=== PATIENT | female | born 1985 | race Caucasian/White ===

== ENCOUNTER 2018-08-14 20:22 | Emergency (ER) | payer BC ==
[2018-08-14 20:26] VITALS: BMI 27.3
[2018-08-14 23:25] VITALS: BP 121/59; PULSE 98; TEMP 98.4
== END 2018-08-14 22:55 | disposition home or self-care (01) ==
LOC: JER 20:22
DX: Z04.1 Encounter for examination and observation following transport accident (principal); O26.892 Other specified pregnancy related conditions, second trimester; O36.8120 Decreased fetal movements, second trimester, not applicable or unspecified; Z3A.26 26 weeks gestation of pregnancy
CPT/HCPCS: 76815; 99281-25

== ENCOUNTER 2018-11-11 07:45 | Inpatient (IN) | payer BC, OTHER ==
[2018-11-11] MEDS ORDERED: AMPICILLIN SODIUM 2 GM VIAL ONE (09:16)
[2018-11-11] MEDS ORDERED: AMPICILLIN - 2 GM in SODIUM CHLORIDE 100 ML IVPB ONE (09:21)
[2018-11-11 09:24] VITALS: BMI 30.6
--- NOTE | 2018-11-11 09:25 | PN ---
Progress Note (short form) - Note Progress Note: cx 4 to 5 cm 75 vx -3 mi, fhr cat 1, irregular contraction ,pitocin rba discussed , agreed
[2018-11-11] MEDS ORDERED: OXYTOCIN 30 UNITS in 0.9% NS 30 UNIT/500 ML INFUS.BAG IVPB SCH (09:30)
[2018-11-11] MEDS ORDERED: DEXTROSE 5%-LACTATED RINGERS 1,000 ML IV SCH (09:30)
--- NOTE | 2018-11-11 09:31 | HP ---
Past Medical History - Primary Care Physician PCP:: Vidal Storey - Admission Chief Complaint: 38 weeks, labor History of Present Illness: 33 yo f , 38 weeks, c/o carmps. spottting,. cx 4 to 5 cm 75, vx -3 membrane bulging, fhr cat 1, irregular contraction History Source: Patient Limitations to Obtaining History: No Limitations - Past Medical History Gastrointestinal: Yes: Crohn's Disease ...: 2 ...Para: 1 ...Term: 1 ...: 0 ...Spon : 0 ...Induced : 0 ...Multiple Gestation: 0 ...LMP: 02/14/18 ... Weeks Gestation by Dates: 38.4 ...EDC by Dates: 11/21/18 - Past Surgical History Hx Myomectomy: No Hx Transabdominal Cerclage: No - Smoking History Smoking history: Never smoked Have you smoked in the past 12 months: No - Alcohol/Substance Use Hx Alcohol Use: No - Social History Usual Living Arrangement: Yes: With Spouse History of Recent Travel: No Home Medications - Allergies Allergies/Adverse Reactions: Allergies Allergy/AdvReac Type Severity Reaction Status Date / Time No Known Drug Allergies Allergy Verified 11/11/18 09:25 - Home Medications Home Medications: Ambulatory Orders Mesalamine [Lialda] 2.4 gm PO DAILY 12/15/14 Vit 108/Iron/Folic AC [ One Tablet] 1 each PO DAILY 12/15/14 Review of Systems - Review of Systems Constitutional: reports: No Symptoms Eyes: reports: No Symptoms HENT: reports: No Symptoms Neck: reports: No Symptoms Cardiovascular: reports: No Symptoms Respiratory: reports: No Symptoms Gastrointestinal: reports: Bloating, Diarrhea Genitourinary: reports: Vaginal Bleeding Breasts: reports: No Symptoms Reported Musculoskeletal: reports: No Symptoms Integumentary: reports: No Symptoms Neurological: reports: No Symptoms Endocrine: reports: No Symptoms Hematology/Lymphatic: reports: No Symptoms Psychiatric: reports: No Symptoms Physical Exam - Maternity Vital Signs: Vital Signs Temperature 97.5 F L 11/11/18 08:45 Pulse Rate 101 H 11/11/18 08:45 Respiratory Rate 20 11/11/18 08:45 Blood Pressure 107/70 11/11/18 08:45 O2 Sat by Pulse Oximetry (%) Constitutional: Yes: Well Nourished, No Distress, Calm Eyes: Yes: WNL, Conjunctiva Clear, EOM Intact HENT: Yes: WNL, Atraumatic, Normocephalic Neck: Yes: WNL, Supple, Trachea Midline Cardiovascular: Yes: WNL, Regular Rate and Rhythm Breast(s): Yes: WNL - Abdominal Exam/OB Fundal Height: 38 Number of Fetuses: Single Presentation: Vertex Contractions: Yes Regularity: Irregular Intensity: Moderate Monitor Mode: External Heart Rate Location: [facility] Category: I Accelerations: Uniform Decelerations: None - Vaginal Exam/OB Vaginal Bleediing: Bloody Show Speculum Exam: No Dilatation (cm): 4 cm Effacement (%): 75 Amniotic Membrane Status: Bulging Presentation: Vertex/Position Station: -3 - Physical Exam Musculoskeletal: Yes: WNL Extremities: Yes: WNL Edema: LLE: Trace, RLE: Trace Deep Tendon Reflex Grade: Normal +2 Psychiatric: Yes: WNL Hemorrhage Risk Assessment - Risk Factors Risk Score: 0 Risk Level: Low Risk Problem List - Problems (1) with 38 completed weeks gestation Code(s): Z3A.38 - 38 WEEKS GESTATION OF (2) Labor established Code(s): [id number] - (3) Crohn's colitis Code(s): K50.10 - CROHN'S DISEASE OF LARGE INTESTINE WITHOUT COMPLICATIONS Qualifiers: Digestive disease complication type: unspecified complication Qualified Code(s): K50.119 - Crohn's disease of large intestine with unspecified complications (4) Labor established Code(s): TCV0164 - Assessment/Plan admit, GBS positve , iv amp,prophylaxsis irregular contraction, pitocin stimulation FHM
[2018-11-11 09:38] LABS: INR 0.99 (0.83-1.09); PROTHROMBIN TIME (PATIENT) 11.7 SEC (9.7-13.0)
[2018-11-11 09:41] LABS: ACTIVATED PTT 24.9 SECONDS (25.2-36.5)
[2018-11-11 09:44] LABS: BASO % 0.3 % (0-2.0); EOS % 0.4 % (0-4.5); HEMATOCRIT 30.7 % (32.4-45.2); HEMOGLOBIN 10.5 GM/dL (10.7-15.3); LYMPH % 14.3 % (8-40); MCH 30.4 pg (25.7-33.7); MCHC 34.1 g/dl (32.0-36.0); MEAN CELL VOLUME 89.1 fl (80-96); MEAN PLT VOLUME 8.5 fl (7.5-11.1); MONO % 5.5 % (3.8-10.2); NEUT % 79.5 % (42.8-82.8); PLATELET COUNT 130 K/MM3 (134-434); RBC 3.44 M/mm3 (3.60-5.2); RDW 13.2 % (11.6-15.6); WHITE BLOOD COUNT 7.3 K/mm3 (4.0-10.0)
[2018-11-11 10:03] LABS: ANION GAP 9 MMOL/L (8-16); BLOOD UREA NITROGEN 7 mg/dL (7-18); CALCIUM 8.4 mg/dL (8.5-10.1); CHLORIDE 104 mmol/L (98-107); CO2 25 mmol/L (21-32); CREATININE 0.4 mg/dL (0.55-1.3); GLUCOSE,RANDOM 74 mg/dL (74-106); POTASSIUM 3.6 mmol/L (3.5-5.1); SODIUM 139 mmol/L (136-145)
[2018-11-11] MEDS ORDERED: OXYTOCIN 30 UNITS in 0.9% NS 30 UNIT/500 ML INFUS.BAG IVPB ONE (10:46)
[2018-11-11] MEDS ORDERED: FENTANYL/BUPIVACAINE/NS/PF - PCEA - 50 ML DISP.SYRIN EP ONE (12:04)
[2018-11-11] MEDS ORDERED: BUPIVACAINE HCL/PF 0.25% (2.5MG/ML) 10 ML VIAL ONE (12:07)
[2018-11-11] MEDS ORDERED: LIDO 2%/EPI 1:200000 PRESRVFRE (20 ML SDVIAL) ONE (12:07)
[2018-11-11] MEDS ORDERED: NALOXONE HCL 0.4 MG/ML VIAL IVPUSH PRN (12:29)
[2018-11-11] MEDS ORDERED: FENTANYL/BUPIVACAINE/NS/PF - PCEA - 50 ML DISP.SYRIN EP SCH (12:30)
[2018-11-11] MEDS: AMPICILLIN - 1 GM in SODIUM CHLORIDE 100 ML IVPB SCH ×3 (13:15→22:38)
[2018-11-11] MEDS ORDERED: AMPICILLIN SODIUM 1 GM VIAL ONE (13:23)
--- NOTE | 2018-11-11 16:06 | PN ---
Progress Note (short form) - Note Progress Note: cx full 100 vx 0 , mr, fhr cat 1, Problem List - Problems (1) with 38 completed weeks gestation Code(s): Z3A.38 - 38 WEEKS GESTATION OF (2) Labor established Code(s): FTX2836 - (3) Crohn's colitis Code(s): K50.10 - CROHN'S DISEASE OF LARGE INTESTINE WITHOUT COMPLICATIONS Qualifiers: Digestive disease complication type: unspecified complication Qualified Code(s): K50.119 - Crohn's disease of large intestine with unspecified complications (4) Labor established Code(s): [id number] -
[2018-11-11] MEDS ORDERED: OXYTOCIN 20 UNITS in 0.9% NS 20 UNIT/1,000 ML INFUS.BAG IV ONE (16:16)
[2018-11-11] MEDS ORDERED: OXYTOCIN 20 UNITS in 0.9% NS 20 UNIT/1,000 ML INFUS.BAG IV SCH (19:00)
[2018-11-11] MEDS ORDERED: TUBERCULIN PPD 5 TU/0.1ML SYRINGE (IN PATIENT USE ONLY) ID ONE (19:00)
[2018-11-11] MEDS ORDERED: ELECTROLYTE-148 SOLN 1,000 ML IV SCH (19:00)
[2018-11-11] MEDS ORDERED: WITCH HAZEL 50% (TUCKS) 40 PAD/JAR PAD TP PRN (20:31)
[2018-11-11] MEDS ORDERED: BISACODYL 10 MG SUPP.RECT RC PRN (20:31)
[2018-11-11] MEDS ORDERED: METHYLERGONOVINE MALEATE 0.2 MG/1 ML AMP IM PRN (20:31)
[2018-11-11] MEDS ORDERED: BENZOCAINE 28 GM HEMORRHOIDAL OINTMENT TP PRN (20:31)
[2018-11-11] MEDS ORDERED: BENZOCAINE 20% 57 GM BOTTLE TP PRN (20:31)
[2018-11-11] MEDS ORDERED: IBUPROFEN 600 MG TABLET (FP) PO PRN (20:31)
[2018-11-11] MEDS ORDERED: D5W-LR W/ 20 UNITS OXYTOCIN 20 UNIT/1,000 ML INFUS.BAG IV SCH (20:45)
[2018-11-11] MEDS: ACETAMINOPHEN 325 MG TABLET (FP) PO PRN (21:52)
[2018-11-11] MEDS: FERROUS SO4 325 MG TABLET (FP) PO SCH (22:34)
[2018-11-12] MEDS: AMPICILLIN - 1 GM in SODIUM CHLORIDE 100 ML IVPB SCH (01:19)
[2018-11-12] MEDS: ACETAMINOPHEN 325 MG TABLET (FP) PO PRN ×3 (02:56→22:12)
[2018-11-12 07:31] LABS: BASO % 0.3 % (0-2.0); EOS % 0.1 % (0-4.5); HEMATOCRIT 28.2 % (32.4-45.2); HEMOGLOBIN 9.5 GM/dL (10.7-15.3); LYMPH % 12.4 % (8-40); MCH 30.2 pg (25.7-33.7); MCHC 33.9 g/dl (32.0-36.0); MEAN CELL VOLUME 89.3 fl (80-96); MEAN PLT VOLUME 8.4 fl (7.5-11.1); NEUT % 81.2 % (42.8-82.8); PLATELET COUNT 156 K/MM3 (134-434); RBC 3.15 M/mm3 (3.60-5.2); RDW 13.4 % (11.6-15.6); WHITE BLOOD COUNT 11.4 K/mm3 (4.0-10.0)
--- NOTE | 2018-11-12 07:33 | PN ---
Progress Note (short form) - Note Progress Note: ppd 1, s/p , has mild cramps CBC, BMP 11/11/18 09:20 Last Vital Signs Temp Pulse Resp BP Pulse Ox 98.8 F 88 18 117/74 100 11/12/18 06:00 11/12/18 06:00 11/12/18 06:00 11/12/18 06:00 11/11/18 17:30 abdomen soft, uterus firm, non tender lochia mild no calf tenderness plan ambulate ,cbc plan for d/c home in am Problem List - Problems (1) with 38 completed weeks gestation Code(s): Z3A.38 - 38 WEEKS GESTATION OF (2) Labor established Code(s): [id number] - (3) Crohn's colitis Code(s): K50.10 - CROHN'S DISEASE OF LARGE INTESTINE WITHOUT COMPLICATIONS Qualifiers: Digestive disease complication type: unspecified complication Qualified Code(s): K50.119 - Crohn's disease of large intestine with unspecified complications (4) Labor established Code(s): [id number] -
[2018-11-12] MEDS: PRENATAL VITAMINS W/ FOLIC ACID TABLET (FP) PO SCH (09:25)
[2018-11-12] MEDS: FERROUS SO4 325 MG TABLET (FP) PO SCH ×2 (09:25→22:12)
[2018-11-12] MEDS ORDERED: SENNOSIDES/DOCUSATE COMBO (SENNA PLUS) TABLET (UD) PO PRN (22:00)
--- NOTE | 2018-11-13 07:06 | PN ---
Post Progress Note Type of Delivery: Vital Signs: Vital Signs Temperature 98.8 F 11/12/18 22:00 Pulse Rate 86 11/12/18 22:00 Respiratory Rate 18 11/12/18 22:00 Blood Pressure 113/75 11/12/18 22:00 O2 Sat by Pulse Oximetry (%) 100 11/11/18 17:30 - Labs Labs: CBC WBC 11.4 K/mm3 (4.0-10.0) H 11/12/18 06:45 RBC 3.15 M/mm3 (3.60-5.2) L 11/12/18 06:45 Hgb 9.5 GM/dL (10.7-15.3) L 11/12/18 06:45 Hct 28.2 % (32.4-45.2) L 11/12/18 06:45 MCV 89.3 fl (80-96) 11/12/18 06:45 MCH 30.2 pg (25.7-33.7) 11/12/18 06:45 MCHC 33.9 g/dl (32.0-36.0) 11/12/18 06:45 RDW 13.4 % (11.6-15.6) 11/12/18 06:45 Plt Count 156 K/MM3 (134-434) 11/12/18 06:45 MPV 8.4 fl (7.5-11.1) 11/12/18 06:45 Absolute Neuts (auto) 9.2 K/mm3 (1.5-8.0) H 11/12/18 06:45 Neutrophils % 81.2 % (42.8-82.8) 11/12/18 06:45 Lymphocytes % 12.4 % (8-40) 11/12/18 06:45 Monocytes % 6.0 % (3.8-10.2) 11/12/18 06:45 Eosinophils % 0.1 % (0-4.5) 11/12/18 06:45 Basophils % 0.3 % (0-2.0) 11/12/18 06:45 Nucleated RBC % 0 % (0-0) 11/12/18 06:45
[2018-11-13] MEDS: PRENATAL VITAMINS W/ FOLIC ACID TABLET (FP) PO SCH (09:45)
[2018-11-13] MEDS: ACETAMINOPHEN 325 MG TABLET (FP) PO PRN (09:45)
[2018-11-13] MEDS: FERROUS SO4 325 MG TABLET (FP) PO SCH (09:45)
[2018-11-13 11:43] VITALS: BP 103/63; PULSE 104; TEMP 97.8
--- NOTE | 2018-11-13 12:00 | DS ---
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: Vital Signs Temperature 97.8 F 11/13/18 10:00 Pulse Rate 104 H 11/13/18 10:00 Respiratory Rate 20 11/13/18 10:00 Blood Pressure 103/63 11/13/18 10:00 O2 Sat by Pulse Oximetry (%) 100 11/11/18 17:30 Constitutional: Yes: Well Nourished, No Distress, Calm Eyes: Yes: WNL HENT: Yes: WNL, Atraumatic, Normocephalic Neck: Yes: WNL Cardiovascular: Yes: WNL Respiratory: Yes: WNL Gastrointestinal: Yes: WNL Renal/: Yes: WNL External Genitalia: Yes: Normal Vaginal Exam: Yes: Normal ....Post : Yes: Uterus firm, Uterus non-tender Breast(s): Yes: WNL Musculoskeletal: Yes: WNL Extremities: Yes: WNL Integumentary: Yes: WNL Neurological: Yes: WNL, Alert, Oriented ...Motor Strength: WNL Psychiatric: Yes: WNL, Alert, Oriented Labs: CBC, BMP 11/12/18 06:45 11/11/18 09:20 Delivery - Delivery Type of Anesthesia: Epidural Episiotomy/Laceration: Midline Delivery, Single - Stages of Labor Date 1st Stage Initiatied: 11/11/18 Time 1st Stage Initiated: 05:00 Date 2nd Stage Initiated: 11/11/18 Time 2nd Stage Initiated: 16:40 Date of Delivery: 11/11/18 Time of Delivery: 16:32 Time Placenta Delivered: 16:35 - Condition of Infant 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 Infant Gender: Female Weight: 9 lb 8 oz Position: Right, OA Total Hours ROM (Hrs/Mins): 5 hrs 20 mins - 1 Minute Total Score: 8 5 Minutes Total Score: 9 - [place] Feeding Plan Initial Plan: Elected not to breastfeed exclusively throughout hospitalization Discharge Summary Reason For Visit: LABOR Current Active Problems Labor established (Acute) Labor established (Acute) with 38 completed weeks gestation (Acute) Hospital Course: unremarkable Condition: Good - Instructions Diet, Activity, Other Instructions: Physical activity Resume your normal everyday activity as tolerated no heavy lifting or exercise until seen by your surgeon. You may walk unlimited rakesh of and climb stairs. You may resume driving the car when you feel safe and comfortable behind the wheel. No sexual activity as instructed. Wound care If you have a bandage, leave it on, and keep dry for 48-72 hours. After that time discard the outer bandage. If they are tapes on the skin under the out of bandage leave them in place. They will peel off in the next 7 to 10 days. Do Not Peel them off. You may shower the day after surgery. If there are tapes present on the skin, you may shower over them. Diet There are no dietary restrictions. Eat healthy, high-fiber foods. Drink 6 to 8 glasses of liquid each day. This will assist in keeping your bowels are regular. Pain management You may take Tylenol or acetaminophen or Ibuprofen (for example, Motrin, Advil etc.) from my pain prescription medication is ordered should be taken as prescribed for moderate to severe pain. Call MD for any of the following: Severe pain not relieved by medication Fever of 101 or higher Excessive bleeding or drainage on dressing Inability to urinate Referrals: Vidal Storey MD [Staff Physician] - Disposition: HOME - Home Medications Comprehensive Discharge Medication List: Ambulatory Orders Mesalamine [Lialda] 2.4 gm PO DAILY 12/15/14 Vit 108/Iron/Folic AC [ One Tablet] 1 each PO DAILY 12/15/14
== END 2018-11-13 13:40 | disposition home or self-care (01) | DRG 806 ==
LOC: JDEL 07:45 → JLDR 08:45 → J3W 18:31
PROVIDERS: ADMIT Obstetrics & Gynecology; ATTEND Obstetrics & Gynecology
PROC: 10E0XZZ Delivery of Products of Conception, External Approach (ICD-10-PCS; principal; 2018-11-11)
PROC: 0W8NXZZ Division of Female Perineum, External Approach (ICD-10-PCS; 2018-11-11)
DX: O26.893 Other specified pregnancy related conditions, third trimester (principal); K50.10 Crohn's disease of large intestine without complications; Z37.0 Single live birth; Z22.330 Carrier of Group B streptococcus; Z3A.38 38 weeks gestation of pregnancy
CPT/HCPCS: 36415; 59409; 80048; 85025; 85610; 85730; 86593; 86850; 86900; 86901